=== PATIENT | male | born 1960 | race Caucasian/White ===

== ENCOUNTER 2017-04-03 12:52 | Emergency (ER) | payer BC, SELFPAY ==
[~2017-04-03] VITALS: Ht 182.9 cm; Wt 100.6 kg
[2017-04-03] MEDS ORDERED: SODIUM CHLORIDE 0.9% 1,000ML IVBOLUS ONE (13:30)
[2017-04-03] MEDS ORDERED: FAMOTIDINE 20 MG/2 ML IVP ONE (13:30)
[2017-04-03] MEDS ORDERED: SODIUM CHLORIDE FLUSH 10ML SYR IVF ONE (13:30)
[2017-04-03] MEDS ORDERED: ONDANSETRON 2MG/ML, 2ML IVPush ONE (13:30)
[2017-04-03 13:36] LABS: HEMATOCRIT 44.7 % (39.2-51.8); HEMOGLOBIN 15.2 g/dL (13.7-18.0); WHITE BLOOD COUNT 7.4 x10^3/uL (3.4-10)
[2017-04-03 13:44] LABS: ASPARTATE AMINO TRANSFERASE 30 U/L (15-37); BLOOD UREA NITROGEN 21 mg/dL (7-18)
[2017-04-03] MEDS ORDERED: ONDANSETRON 2MG/ML, 2ML ONE (13:58)
[2017-04-03] MEDS ORDERED: FAMOTIDINE 20 MG/2 ML ONE (13:58)
[2017-04-03 15:16] VITALS: BP 120/71
== END 2017-04-03 15:18 | disposition home or self-care (01) ==
LOC: ED 14:18
DX: K59.00 Constipation, unspecified (principal); R10.84 Generalized abdominal pain; Z90.49 Acquired absence of other specified parts of digestive tract
CPT/HCPCS: 36415; 74020; 80053; 83690; 85025; 96361; 96374; 96375; 99285; J2405; J7030; S0028